=== PATIENT | female | born 1985 | race Caucasian/White ===

== ENCOUNTER 2017-01-29 16:06 | Emergency (ER) | payer MEDICAID ==
--- NOTE | 2017-01-29 18:02 | C.PDOC ---
History Of Present Illness 31 y/o obese female c/o left hip pain x 2 weeks with no recalled injury or fall. pt reports she saw some bruising on lateral upper left thigh sround itme pain started, which has resolved. pt sts pain in hip making her walk lopsided, which exacerbates the pain in her right knee. no fever or chills. numbness or tingling. no bladder or bowel dysfunction. no back pain. Time Seen by Provider: 01/29/17 16:27 Chief Complaint (Nursing): Hip Pain Past Medical History Reviewed: Historical Data, Nursing Documentation, Vital Signs Vital Signs: Last Vital Signs Temp 97.6 F 01/29/17 16:11 Pulse 84 01/29/17 16:11 Resp 20 01/29/17 16:11 BP 118/78 01/29/17 16:11 Pulse Ox 99 01/29/17 18:06 - Medical History PMH: Anxiety, Bipolar Disorder, Seizures Surgical History: No Surg Hx Family History: States: Unknown Family Hx - Social History Hx Tobacco Use: Yes (light smoker) Hx Alcohol Use: Yes Hx Substance Use: No - Immunization History Hx Tetanus Toxoid Vaccination: Yes Hx Influenza Vaccination: No Hx Pneumococcal Vaccination: Yes Review Of Systems Constitutional: Negative for: Fever, Chills Cardiovascular: Negative for: Chest Pain, Palpitations Respiratory: Negative for: Cough, Shortness of Breath Gastrointestinal: Negative for: Nausea, Vomiting, Abdominal Pain Genitourinary: Negative for: Dysuria, Frequency Musculoskeletal: Positive for: Leg Pain, Other (left hip pain). Negative for: Back Pain Neurological: Negative for: Weakness, Numbness Physical Exam - Physical Exam Appears: Non-toxic, Other (obese female, uncomfortable) Skin: Normal Color, Warm, Dry Head: Atraumatic, Normacephalic Neck: Normal ROM, No Midline Cervical Tenderness Back: Normal Inspection, No CVA Tenderness, Vertebral Tenderness, Paraspinal Tenderness (left lumbar area) Extremity: Tenderness (left hip), No Pedal Edema, No Calf Tenderness, No Deformity, No Swelling Extremity: Left: Normal Color And Temperature, Painful To Bear Weight, Other ( leftlateral hip tenderness with dec rom 2/2 pain), Right: Hips Non-Tender, Normal Color And Temperature, Normal ROM, Bilateral: Normal Color And Temperature Neurological/Psych: Oriented x3, Normal Speech, Normal Cognition, Normal Motor, Normal Sensation ED Course And Treatment O2 Sat by Pulse Oximetry: 99 Medical Decision Making Medical Decision Making: xray left hip sows degenerative changes, no acute fx. will d/c with nsaids and ortho f/u. Disposition Counseled Patient/Family Regarding: Studies Performed, Diagnosis, Need For Followup, Rx Given - Disposition Referrals: Yolanda Taylor MD [Staff Provider] - Disposition: HOME/ ROUTINE Disposition Time: 18:08 Condition: IMPROVED Prescriptions: Ibuprofen [Motrin] 600 mg PO TID #30 tab Forms: General Discharge Instructions - Clinical Impression Clinical Impression: Osteoarthritis of hip, Hip pain
--- NOTE | 2017-01-29 18:04 | RAD ---
Pelvis and left hip two views History: Hip pain. Comparison: None available. Findings: Left hip: Moderate degenerative changes of the left hip with joint space narrowing and subchondral sclerosis. Small ossific density seen medial to the lesser trochanter, nonspecific. No evidence of acute displaced fracture or dislocation. Evaluation of the remainder of the bony pelvis demonstrates moderate degenerative changes of the right hip with joint space narrowing and subchondral sclerosis. Impression: Degenerative changes. Negative acute. If pain persists, consider MRI.
[2017-01-29 18:21] VITALS: BP 112/72; PULSE 72; RESP 18; TEMP 98.6; O2SAT 98
== END 2017-01-29 18:24 | disposition home or self-care (01) ==
LOC: C.ER 16:06
DX: M16.12 Unilateral primary osteoarthritis, left hip (principal); M25.552 Pain in left hip
CPT/HCPCS: 73502; 96372; 99284; J1885

== ENCOUNTER 2017-05-12 13:07 | Emergency (ER) | payer MEDICAID ==
[2017-05-12 13:18] VITALS: RESP 18; TEMP 98; O2SAT 99
[2017-05-12] MEDS ORDERED: Sodium Chloride 0.9% 1,000 ML IV ONE (14:26)
--- NOTE | 2017-05-12 14:57 | C.PDOC ---
History Of Present Illness 31 y/o female pmhx anxiety on xanax and lexopro presents to ED stating she ran out of her medication and hasn't been able to refill it because she hasn't seen her psychiatrist. Pt reports being stressed with her living situation and hasn' t been able to sleep adequately. Today while working at [employer], when someone called her name he turned her head quickly and felt suddenly dizzy described as lightheadedness, not vertigo. Afterward she became very anxious and started shaking. Episode lasted about 20 minutes before resolving on it's own. Pt currently feels well; denies headache, dizziness at this time, chest pain, palpitations, fever, nausea, vomiting, urinary symptoms, abdominal pain, SI/HI, or hearing voices or any other complaints. Time Seen by Provider: 05/12/17 13:40 Chief Complaint (Nursing): Anxiety History Per: Patient History/Exam Limitations: no limitations Onset/Duration Of Symptoms: Mins Current Symptoms Are (Timing): Gone Severity: Moderate Associated Symptoms: Anxiety Involuntary Hold By: None Recent travel outside of the [place]: No Past Medical History Reviewed: Historical Data, Nursing Documentation, Vital Signs Vital Signs: Last Vital Signs Temp 98 F 05/12/17 16:30 Pulse 71 05/12/17 16:30 Resp 18 05/12/17 16:32 BP 125/88 05/12/17 16:30 Pulse Ox 99 05/12/17 16:32 - Medical History PMH: Anxiety, Bipolar Disorder, Depression, Seizures Family History: States: Unknown Family Hx - Social History Hx Tobacco Use: Yes (light smoker) Hx Alcohol Use: Yes Hx Substance Use: No - Immunization History Hx Tetanus Toxoid Vaccination: Yes Hx Influenza Vaccination: No Hx Pneumococcal Vaccination: Yes Review Of Systems Except As Marked, All Systems Reviewed And Found Negative. Constitutional: Negative for: Fever Cardiovascular: Negative for: Chest Pain Respiratory: Negative for: Shortness of Breath Gastrointestinal: Negative for: Nausea, Vomiting, Abdominal Pain Genitourinary: Negative for: Dysuria, Frequency, Hematuria Neurological: Negative for: Headache, Dizziness Physical Exam - Physical Exam Appears: Well, Non-toxic, No Acute Distress Skin: Normal Color, Warm, Dry, No Rash Head: Atraumatic, Normacephalic Eye(s): bilateral: Normal Inspection, PERRL, EOMI, Other (no nystagmus) Ear(s): Bilateral: Normal Oral Mucosa: Dry Neck: Normal, Normal ROM, No Midline Cervical Tenderness, No Paracervical Tenderness, Supple Chest: Symmetrical Cardiovascular: Rhythm Regular, No Friction Rub, No Murmur Respiratory: Normal Breath Sounds, No Decreased Breath Sounds, No Accessory Muscle Use, No Rales, No Rhonchi, No Stridor, No Wheezing Gastrointestinal/Abdominal: Normal Exam, Soft, No Tenderness, No Guarding, No Rebound Back: Normal Inspection, No CVA Tenderness, No Vertebral Tenderness Extremity: Normal ROM, No Tenderness, No Deformity, No Swelling Extremity: Bilateral: Atraumatic, Normal ROM Neurological/Psych: Oriented x3, Normal Speech, Normal Cognition, Normal Cranial Nerves, Cerebellar Signs, Normal Motor, Normal Sensation, Normal Reflexes Gait: Steady ED Course And Treatment - Laboratory Results Result Diagrams: 05/12/17 14:56 05/12/17 14:56 O2 Sat by Pulse Oximetry: 99 (room air) Pulse Ox Interpretation: Normal Medical Decision Making Medical Decision Makin31 y/o female pmhx anxiety on xanax and lexopril presents to ED stating she ran out of her medication and hasn't been able to refill it because she hasn't seen her psychiatrist. Based on history and exam, pt developed any anxiety attack after an episode of dizziness due to lack of adequate sleep/rest. Plan: Labs, ativan, IV fluids Labs reviewed, Uhcg (-), UA shows (+) UTI, rest of the labs are wnl. On re- evaluation, pt is resting comfortably in bed in no acute distress. VS wnl. On exam, BS equal b/l, cardiac rrr, repeat neuro exam is unchanged with no focal findings. Pt states that she feels much improved and feels comfortable going home. Pt advised to f/u with pmd and psych referral provided in 2 days without fail for re-evaluation. Advised to return to the ER at any time for any new or worsening symptoms. Disposition Counseled Patient/Family Regarding: Studies Performed, Diagnosis, Need For Followup - Disposition Referrals: Zhanna Wick MD [Staff Provider] - Yolanda Blount MD [Staff Provider] - Disposition: HOME/ ROUTINE Disposition Time: 16:00 Condition: IMPROVED Additional Instructions: Follow up with the clinic in 2 days without fail for re-evaluation. Return to the ER at any time for any new or worsening symptoms. Prescriptions: Nitrofurantoin Macrocrystals [Macrobid] 100 mg PO BID #20 cap Instructions: Urinary Tract Infection in Women (ED), Lightheadedness (ED), Anxiety (ED) Forms: Work Excuse Print Language: ANDORRAN - Clinical Impression Clinical Impression: Anxiety, Dizziness, UTI (urinary tract infection) - PA / INSURANCE POLICY ISSUE CLERK / Resident Statement MD/DO has reviewed & agrees with the documentation as recorded. - Scribe Statement The provider has reviewed the documentation as recorded by the Scribe Sanchez Rosa All medical record entries made by the Jan were at my direction and personally dictated by me. I have reviewed the chart and agree that the record accurately reflects my personal performance of the history, physical exam, medical decision making, and the department course for this patient. I have also personally directed, reviewed, and agree with the discharge instructions and disposition.
[2017-05-12 15:00] LABS: BASO # 0.1 K/uL (0.0-0.2); BASO % 1.1 % (0.0-2.0); EOS # 0.2 K/uL (0.0-0.7); EOS % 2.4 % (0.0-4.0); HEMOGLOBIN 12.1 g/dL (11.0-16.0); LYMPH # 1.8 K/uL (1.0-4.3); LYMPH % 27.3 % (20.0-40.0); MEAN CELL VOLUME 92.2 fL (81.0-99.0); MEAN CORPUSCULAR HEMOGLOBIN 29.8 pg (27.0-31.0); MEAN CORPUSCULAR HGB CONC 32.3 g/dL (33.0-37.0); MEAN PLATELET VOLUME 10.2 fL (7.2-11.7); MONO # 0.4 K/uL (0.0-0.8); MONO % 6.7 % (0.0-10.0); NEUT # 4.2 K/uL (1.8-7.0); NEUT % 62.5 % (50.0-75.0); NRBC % 0.1 % (0.0-2.0); RBC 4.07 Mil/uL (3.80-5.20); RED CELL DISTRIBUTION WIDTH 13.8 % (11.5-14.5); WHITE BLOOD COUNT 6.7 K/uL (4.8-10.8)
[2017-05-12 15:07] LABS: ALBUMIN 3.6 g/dL (3.5-5.0)
[2017-05-12 15:10] LABS: AST/SGOT 30 U/L (14-36); GFR AFRICAN-AMERICAN > 60; GFR NON-AFRICAN AMERICAN > 60
[2017-05-12 15:11] LABS: ALB/GLOB RATIO 0.9 (1.0-2.1); ALT/SGPT 24 U/L (9-52); BLOOD UREA NITROGEN 11 mg/dL (7-17); CALCIUM 7.9 mg/dl (8.6-10.4)
[2017-05-12 15:44] LABS: HCG,QUALITATIVE URINE NEGATIVE (NEGATIVE)
[2017-05-12 15:53] LABS: SQUAMOUS EPITHIAL 8 /hpf (0-5); URINE BACTERIA RARE (<OCC); URINE BILIRUBIN NEGATIVE (NEGATIVE); URINE BLOOD NEGATIVE (NEGATIVE); URINE CLARITY Hazy (Clear); URINE COLOR Yellow (YELLOW); URINE GLUCOSE (UA) NORMAL (Normal); URINE LEUKOCYTE ESTERASE 1+ Leu/uL (Negative); URINE NITRATE NEGATIVE (NEGATIVE); URINE PROTEIN 1+ mg/dL (NEGATIVE); URINE UROBILINOGEN NORMAL mg/dL (0.2-1.0)
[2017-05-12 17:11] VITALS: BP 125/88; PULSE 71
== END 2017-05-12 17:11 | disposition home or self-care (01) ==
LOC: C.ER 13:07
DX: F41.9 Anxiety disorder, unspecified (principal); R42 Dizziness and giddiness; N39.0 Urinary tract infection, site not specified
CPT/HCPCS: 80053; 81001; 84484; 84703; 85025; 96360; 99285; J7040

== ENCOUNTER 2017-07-28 15:27 | Emergency (ER) | payer MEDICAID, OTHER ==
[2017-07-28 15:38] VITALS: TEMP 98.2
--- NOTE | 2017-07-28 16:42 | C.PDOC ---
History Of Present Illness 31 y/o female with pmhx of rheumatoid arthritis, c/o left shoulder pain for a few days. Pain is described as stiff and tightness. Reports not being able to extend arm above her head. Ice and Aleve helps with the pain. Pain is worse today which prompted the visit. Denies trauma, weakness, or numbness. Time Seen by Provider: 07/28/17 16:09 Chief Complaint (Nursing): Upper Extremity Problem/Injury History Per: Patient History/Exam Limitations: no limitations Onset/Duration Of Symptoms: Days (few days) Current Symptoms Are (Timing): Still Present Quality: Tightness Severity: Mild Recent travel outside of the [place]: No Additional History Per: Patient Past Medical History Reviewed: Historical Data, Nursing Documentation, Vital Signs Vital Signs: Last Vital Signs Temp 98.2 F 07/28/17 15:37 Pulse 77 07/28/17 17:21 Resp 20 07/28/17 17:21 BP 116/80 07/28/17 17:21 Pulse Ox 98 07/28/17 17:21 - Medical History PMH: Anxiety, Bipolar Disorder, Depression, Seizures Family History: States: Unknown Family Hx - Social History Hx Tobacco Use: Yes (light smoker) Hx Alcohol Use: No Hx Substance Use: No - Immunization History Hx Tetanus Toxoid Vaccination: No Hx Influenza Vaccination: No Hx Pneumococcal Vaccination: No Review Of Systems Constitutional: Negative for: Other (Trauma) Musculoskeletal: Positive for: Shoulder Pain (Left) Neurological: Negative for: Weakness, Numbness Physical Exam - Physical Exam Appears: Non-toxic, No Acute Distress Skin: Warm, Dry Extremity: No Normal ROM (Limited active ROM with flexion and abduction of the left shoulder. Passive ROM can fully flex left shoulder), Capillary Refill (< 2secs), No Deformity, No Swelling Pulses: Left Radial: Normal, Right Radial: Normal Neurological/Psych: Oriented x3, Normal Motor, Normal Sensation ED Course And Treatment O2 Sat by Pulse Oximetry: 99 (RA) Pulse Ox Interpretation: Normal Medical Decision Making Medical Decision Making: Impression: * left shoulder pain for a few days. Plans: * Tylenol * Motrin * UA Patient is in no acute distress at this time. Patient is without extremity weakness or numbness. Patient is instructed to follow up with PMD for further evaluation and to return if symptoms worsens. Disposition Counseled Patient/Family Regarding: Diagnosis, Need For Followup, Rx Given - Disposition Referrals: [facility] [Outside] Disposition: HOME/ ROUTINE Disposition Time: 16:39 Condition: STABLE Additional Instructions: Follow up with your doctor or clinic. Take Motrin and Tylenol together. Ice the injured area every day. Rest the arm. Prescriptions: Ibuprofen [Motrin] 600 mg PO TID #15 tab Instructions: Tendinitis (ED) Forms: General Discharge Instructions, Work Excuse - POA Present On Arrival: None - Clinical Impression Clinical Impression: Tendinitis - Scribe Statement The provider has reviewed the documentation as recorded by the Scribe Ruben massey All medical record entries made by the Scribe were at my direction and personally dictated by me. I have reviewed the chart and agree that the record accurately reflects my personal performance of the history, physical exam, medical decision making, and the department course for this patient. I have also personally directed, reviewed, and agree with the discharge instructions and disposition.
[2017-07-28 17:23] VITALS: BP 116/80; PULSE 77; RESP 20
[2017-07-28 18:26] VITALS: O2SAT 99
== END 2017-07-28 17:23 | disposition home or self-care (01) ==
LOC: C.ER 15:27
DX: M75.92 Shoulder lesion, unspecified, left shoulder (principal)